=== PATIENT | male | born 1970 | race Caucasian/White ===

== ENCOUNTER 2018-10-01 03:07 | Emergency (ER) | payer MEDICAID, OTHER ==
[~2018-10-01] VITALS: Ht 172.7 cm; Wt 75.0 kg
[~2018-10-01 03:07] MED LIST: DILANTIN
[2018-10-01] MEDS ORDERED: SODIUM CHLORIDE 0.9% 1,000 ML IV ONE (03:36)
[2018-10-01] MEDS ORDERED: LIDOCAINE HCL/PF 1% 10 MG/ML 5ML VIAL IJ ONE (03:45)
[2018-10-01] MEDS ORDERED: MORPHINE SULFATE 4 MG/ML CPJ (NOT FOR IM USE) IV ONE (03:45)
[2018-10-01] MEDS ORDERED: BACITRACIN ZINC OINT UDPKT TOP ONE (03:45)
[2018-10-01] MEDS ORDERED: ONDANSETRON HCL 4MG/2ML INJ IV ONE (03:45)
[2018-10-01] MEDS ORDERED: TETANUS, DIPHTHERIA, PERTUSSIS VAC/PF 0.5ML (>7YR OLD) IM ONE (03:45)
[2018-10-01 04:04] LABS: BASOPHILS % 0.5 % (0.0-2.0); CHLORIDE 105 mEq/L (98-107); EOSINOPHILS % 2.8 % (0.0-5.0); HEMATOCRIT. 42.9 % (42.0-52.0); HEMOGLOBIN. 14.7 g/dL (14.0-18.0); LYMPHOCYTES % 11.8 % (20.0-50.0); MEAN CORPUSCULAR HEMOGLOBIN 29.8 pg (28.0-32.0); MEAN CORPUSCULAR VOLUME 86.7 fL (80.0-94.0); MEAN PLATELET VOLUME 8.3 fl (7.4-10.4); MONOCYTES % 6.6 % (2.0-8.0); NEUTROPHILS % 78.3 % (40.0-76.0); PLATELET 240 x1000/uL (130-400); RED BLOOD CELL COUNT 4.95 mill/uL (4.7-6.1); RED CELL DISTRIBUTION WIDTH 13.7 % (11.6-14.6)
[2018-10-01] MEDS ORDERED: LIDOCAINE HCL/PF 1% 10 MG/ML 5ML VIAL ONE (04:14)
[2018-10-01] MEDS ORDERED: PHENYTOIN SODIUM EXTENDED 100MG CAPSULE PO ONE (05:45)
[2018-10-01 07:04] VITALS: BP 130/85
== END 2018-10-01 07:09 | disposition home or self-care (01) ==
LOC: ER 03:07
DX: G40.909 Epilepsy, unspecified, not intractable, without status epilepticus (principal); S01.81XA Laceration without foreign body of other part of head, initial encounter; W10.8XXA Fall (on) (from) other stairs and steps, initial encounter; Y93.89 Activity, other specified; Y92.018 Other place in single-family (private) house as the place of occurrence of the external cause
CPT/HCPCS: 12014; 36415; 70450; 70486; 72125; 80053; 80185; 85025; 90471; 90715; 93005; 96374; 96375; 99284; J2270; J2405; J3490; J7030

== ENCOUNTER 2023-08-19 16:28 | Emergency (ER) | payer OTHER, MEDICAID ==
[~2023-08-19] VITALS: Ht 172.7 cm; Wt 86.0 kg
[2023-08-19 16:34] VITALS: O2SAT 99
[2023-08-19 18:35] VITALS: BP 161/91; PULSE 85; RESP 17; TEMP 97.8
== END 2023-08-19 18:35 | disposition home or self-care (01) ==
LOC: ER 16:28
DX: G40.909 Epilepsy, unspecified, not intractable, without status epilepticus (principal); F12.10 Cannabis abuse, uncomplicated
CPT/HCPCS: 99281

== ENCOUNTER 2024-07-04 14:06 | Emergency (ER) | payer MEDICARE, MEDICAID ==
[~2024-07-04] VITALS: Ht 172.7 cm; Wt 84.0 kg
[2024-07-04 14:30] VITALS: BP 187/123; TEMP 98.3; O2SAT 96
[2024-07-04 14:35] VITALS: PULSE 63; RESP 18; O2SAT 99
[2024-07-04 17:23] LABS: BASOPHILS % 0.9 % (0.0-2.0); EOSINOPHILS % 4.4 % (0.0-5.0); HEMATOCRIT. 42.3 % (42.0-52.0); HEMOGLOBIN. 14.4 g/dL (14.0-18.0); LYMPHOCYTES % 18.6 % (20.0-50.0); MEAN CORPUSCULAR HEMOGLOBIN 29.8 pg (28.0-32.0); MEAN CORPUSCULAR VOLUME 87.6 fL (80.0-94.0); MEAN PLATELET VOLUME 7.7 fl (7.4-10.4); MONOCYTES % 7.1 % (2.0-8.0); PLATELET 276 x1000/uL (130-400); RED BLOOD CELL COUNT 4.83 mill/uL (4.7-6.1); RED CELL DISTRIBUTION WIDTH 12.6 % (11.6-14.6); WHITE BLOOD COUNT 7.9 x1000/uL (4.5-11.0)
[2024-07-04 17:25] LABS: CHLORIDE 106 mEq/L (98-107); POTASSIUM 4.2 mEq/L (3.5-5.1); SODIUM 141 mEq/L (136-145)
[2024-07-04 17:26] LABS: CARBON DIOXIDE 27 mEq/L (21-32)
[2024-07-04 17:27] LABS: CALCIUM 9.8 mg/dL (8.7-10.4)
[2024-07-04 17:32] LABS: CREATININE 1.1 mg/dL (0.6-1.3); GLUCOSE 99 mg/dL (70-105); UREA NITROGEN BLOOD 13 mg/dL (9-23)
[2024-07-04 17:33] LABS: TROPONIN I HIGH SENSITIVITY 4 ng/L (3.0-53)
[2024-07-04] MEDS: GABAPENTIN 300MG CAPSULE PO ONE (18:50)
[2024-07-04] MEDS ORDERED: GABA-529 MT (19:55)
[2024-07-04] MEDS ORDERED: PHENYTOIN SODIUM EXTENDED 100MG CAPSULE PO NR (20:00)
== END 2024-07-04 20:55 | disposition left against medical advice (07) ==
LOC: ER 14:06
DX: M62.838 Other muscle spasm (principal); R51.9 Headache, unspecified; Z98.890 Other specified postprocedural states; Z86.59 Personal history of other mental and behavioral disorders
CPT/HCPCS: 36415; 71045; 80048; 80185; 84484; 85025; 93005; 99285